=== PATIENT | female | born 1995 | race Caucasian/White ===

== ENCOUNTER 2020-01-21 03:12 | Observation (INO) | payer BC ==
[~2020-01-21] VITALS: Ht 157.5 cm; Wt 96.5 kg
[2020-01-21] VITALS (9 sets, daily range): BP systolic 104–133; BP diastolic 62–90; PULSE 73–99; TEMP 97.5–99.2
[~2020-01-21 03:12] MED LIST: BEYAZ1 TAB PO
[2020-01-21] MEDS ORDERED: WELLBUTRIN SR150 M1 PO (03:29)
[2020-01-21] MEDS ORDERED: LEXAPRO 10MG10 MG PO (03:29)
[2020-01-21 03:39] LABS: COLLECTION METHOD CLEAN CATCH
[2020-01-21 03:44] LABS: MUCOUS Present /lpf; PH 5 (5-8); URINE APPEARANCE Hazy; URINE BACTERIA Rare /hpf; URINE BILIRUBIN Negative (NEGATIVE); URINE BLOOD Negative (NEGATIVE); URINE COLOR Yellow; URINE GLUCOSE Negative (NEGATIVE); URINE KETONE Negative (NEGATIVE); URINE LEUKOCYTE ESTERASE Negative (NEGATIVE); URINE NITRATE Negative (NEGATIVE); URINE PROTEIN(semi-quant) Negative (NEGATIVE); URINE RBC 0-2 /hpf; URINE UROBILINOGEN Negative (NEGATIVE)
[2020-01-21 03:51] LABS: BASO % 0.4 % (0.0-2.0); EOS # 0.1 (0.0-0.7); EOS % 1.9 % (0-4.0); GRAN # 4.5 (1.4-6.5); HEMOGLOBIN 14.8 g/dl (12.5-16.0); LYMPH # 2.4 (1.2-3.4); LYMPH % 32.3 % (20.0-51.0); MEAN CELL VOLUME 88 fl (80.0-100.0); MEAN CORPUSCULAR HEMOGLOBIN 30 pg (27.0-31.0); MEAN CORPUSCULAR HGB CONC 34 g/dl (33.0-37.0); MEAN PLATELET VOLUME 9.9 fl (7.4-10.4); MONO # 0.5 (0.1-0.6); MONO % 6.1 % (1.7-9.3); PLATELET COUNT 261 K/mm3 (130-400); RED BLOOD COUNT 4.98 M/mm3 (4.10-5.30); REDCELL DISTRIBUTION WIDTH-CV 12.9 % (11.5-14.5)
[2020-01-21 04:12] LABS: ALANINE AMINOTRANSFERASE 25 U/L (4-34); ALBUMIN 4.6 gm/dL (3.5-5.0); ALKALINE PHOSPHATASE 97 U/L (50-136); ANION GAP 11 mmol/L (7-16); AST,SGOT 24 U/L (15-37); BILIRUBIN,TOTAL 0.3 mg/dL (0.0-1.0); BLOOD UREA NITROGEN 13 mg/dL (7-17); C-REACTIVE PROTEIN < 0.5 mg/dL (0.0-0.9); CALCIUM 9.6 mg/dL (8.4-10.2); CARBON DIOXIDE 21 mmol/L (22-30); CHLORIDE 107 mmol/L (98-107); CREATININE, serum 0.84 (0.52-1.25); GLUCOSE 110 mg/dL (74-106); LIPASE 72 U/L (23-300); POTASSIUM 3.8 mmol/L (3.4-5.0); SODIUM 139 mmol/L (137-145); TOTAL PROTEIN 8.2 gm/dL (6.4-8.2)
--- NOTE | 2020-01-21 10:30 | NUR ---
Plan: TO return home with Roommate Assist. Assessment: Patient reports that she resides locally with a roomate. Patient reports that her mother is her emergency contact Estefania and friend Reji . Patient reports that her PCP is Ivy Corcoran in [place] and she obtains rx from [place] [id number]. Patient shares that she has transportation and does not have any care concerns at this time. Patient denies needing any financial support obtaining medications and denies the use of any DME. No additional needs identified. Action: SUYAPA educated patient on services and community supports available to them.
--- NOTE | 2020-01-21 15:50 | NUR ---
Initial visit; Dayna and her mom thanked [employer]igator for looking in on her and offering spiritual care.
[2020-01-21] MEDS ORDERED: ULTRAM 50MG TAB50 MG PO (16:13)
--- NOTE | 2020-01-21 17:11 | NUR ---
PT TO ROOM 347 PER BED WITH REPORT FROM DAVID RUSSELL @[id number]. PT IS A/O X3 LUNGS CTA, LAP SITES CDI WITH DERMABOND BEA. PT DENIES N/V. VSS,
--- NOTE | 2020-01-21 19:05 | NUR ---
PT WANTING TO GO HOME. HAS EATEN AND VOIDED AND REPORTS NO PAIN. DISCHARGE INSTRUCTIONS REVIEWED WITH PT AND MOM. REMOVED SL FROM RT HAND, ANGIOCATH INTACT.
--- NOTE | 2020-01-21 19:17 | NUR ---
DISCHARGED TO PRIVATE CAR. COPY OF DISCHARGE INSTRUCTIONS SENT WITH PT [employer] PERSON[employer]ONG[employer]. TAKEN VIA W/C.
== END 2020-01-21 19:17 | disposition home or self-care (01) ==
LOC: COL.ER 03:12 → SURG 05:47
PROVIDERS: Emergency Medicine; ADMIT Surgery
DX: K80.10 Calculus of gallbladder with chronic cholecystitis without obstruction (principal); Z20.828 Contact with and (suspected) exposure to other viral communicable diseases; Z79.899 Other long term (current) drug therapy
CPT/HCPCS: G0378; J0330; J0690; J1100; J1170; J1885; J2405; J2543; J2704; J3010; J7030; J7120; Q9967

== ENCOUNTER 2020-01-25 04:14 | Observation (INO) | payer BC ==
[~2020-01-25] VITALS: Ht 157.5 cm; Wt 94.2 kg
[2020-01-25] VITALS (11 sets, daily range): BP systolic 107–135; BP diastolic 57–77; PULSE 68–82; TEMP 97.9–98.9
[~2020-01-25 04:14] MED LIST changes: +LEXAPRO 10MG10 MG PO; +ULTRAM 50MG TAB50 MG PO; +WELLBUTRIN SR150 M1 PO
[2020-01-25 04:57] LABS: BASO % 0.3 % (0.0-2.0); EOS % 0.2 % (0-4.0); GRAN # 8.5 (1.4-6.5); GRAN % 87.1 % (42.2-75.2); HEMOGLOBIN 15.8 g/dl (12.5-16.0); LYMPH # 0.8 (1.2-3.4); LYMPH % 7.6 % (20.0-51.0); MEAN CELL VOLUME 89 fl (80.0-100.0); MEAN CORPUSCULAR HEMOGLOBIN 30 pg (27.0-31.0); MEAN CORPUSCULAR HGB CONC 34 g/dl (33.0-37.0); MEAN PLATELET VOLUME 9.6 fl (7.4-10.4); MONO # 0.4 (0.1-0.6); MONO % 4.5 % (1.7-9.3); PLATELET COUNT 275 K/mm3 (130-400); RED BLOOD COUNT 5.31 M/mm3 (4.10-5.30); REDCELL DISTRIBUTION WIDTH-CV 12.7 % (11.5-14.5)
[2020-01-25 05:08] LABS: BILIRUBIN,TOTAL 1.4 mg/dL (0.0-1.0); CALCIUM 9.4 mg/dL (8.4-10.2); CREATININE, serum 0.76 (0.52-1.25); POTASSIUM 4.1 mmol/L (3.4-5.0); TOTAL PROTEIN 9.1 gm/dL (6.4-8.2)
[2020-01-25 05:34] LABS: COLLECTION METHOD CLEAN CATCH
[2020-01-25 05:45] LABS: PH 6 (5-8); URINE APPEARANCE Clear; URINE BACTERIA None Seen /hpf; URINE BILIRUBIN Negative (NEGATIVE); URINE BLOOD Negative (NEGATIVE); URINE COLOR Yellow; URINE GLUCOSE Negative (NEGATIVE); URINE KETONE Negative (NEGATIVE); URINE LEUKOCYTE ESTERASE Negative (NEGATIVE); URINE NITRATE Negative (NEGATIVE); URINE PROTEIN(semi-quant) Negative (NEGATIVE); URINE RBC 0-2 /hpf; URINE UROBILINOGEN >=4.0 mg/dL (NEGATIVE)
--- NOTE | 2020-01-25 21:00 | NUR ---
Received report from YVONNE Monreal. Pt currently sitting up in her chair working on her laptop. Pt has her call light within reach.
--- NOTE | 2020-01-26 | NUR ---
Pt currently sleeping in bed and has her call light within reach.
[2020-01-26 02:52] VITALS: BP 109/75; PULSE 95; TEMP 98.3
--- NOTE | 2020-01-26 06:01 | NUR ---
Pt currently sleeping in bed. Pt has not had any complaints of pain throughout the shift. Pt has her call light within reach.
--- NOTE | 2020-01-26 08:00 | NUR ---
Patient resting in bed at this time, is alert and oriented, answers questions appropriately. Patient denies pain or needs, call light within reach.
[2020-01-26 08:21] VITALS: BP 111/72; PULSE 86; TEMP 98.2
--- NOTE | 2020-01-26 09:45 | NUR ---
Discharge teaching completed. Discussed discharge instructions, medications, and follow up appointment. Questions asked and answered. Patient denied further concerns. Patient and mother verified all personal belongings were gathered and patient escorted to ED entrance where she entered a private vehicle.
== END 2020-01-26 09:50 | disposition home or self-care (01) ==
LOC: COL.ER 04:14 → JCC 11:20
PROVIDERS: Emergency Medicine; ADMIT Surgery
DX: K80.50 Calculus of bile duct without cholangitis or cholecystitis without obstruction (principal); F32.9 Major depressive disorder, single episode, unspecified; Z79.899 Other long term (current) drug therapy
CPT/HCPCS: C1769; G0378; J1170; J2550; J2704; J3010; J7030; Q9967